=== PATIENT | female | born 2000 | race Caucasian/White ===

== ENCOUNTER 2022-11-20 21:36 | Emergency (ER) | payer SELFPAY ==
[~2022-11-20] VITALS: Ht 160 cm; Wt 50.0 kg
--- NOTE | 2022-11-20 22:16 | ED General ---
General Chief Complaint: General Problems/Pain Stated Complaint: FEVER - VOMITING Nursing Triage Note: Patient presented to the ER tonight with complaints of body aches, fever and decreased appetite x 2 days as well as nausea. Source of Information: Patient Exam Limitations: No Limitations History of Present Illness Date Seen by Provider: Nov 20, 2022 Time Seen by Provider: 22:16 Initial Comments This is a 22-year-old female who presented to ER with complaints of generalized body aches, fever, decreased appetite over the past 2 days with nausea and vomiting. Took an oral ondansetron yesterday with no relief. Last menstrual period was middle of October, she had her first Depo injection at that time. Allergies and Home Medications Allergies Coded Allergies: No Known Drug Allergies (Unverified , 11/20/22) Past Kombepv-Etmtdb-Lolofo Hx Immunizations Up To Date First/Initial COVID19 Vaccinat: moderna Second COVID19 Vaccination Bryan: modernayleen Physical Exam Vital Signs Vital Signs - First Documented 11/20/22 21:52 Temp 36.6 Pulse 97 Resp 18 B/P (MAP) 101/82 (88) Pulse Ox 99 O2 Delivery Room Air Capillary Refill : Less Than 3 Seconds Height, Weight, BMI Height: '" Weight: lbs. oz. kg; 19.00 BMI Method: Progress/Results/Core Measures Suspected Sepsis SIRS Temperature: Pulse: 97 Respiratory Rate: 18 Blood Pressure 101 /82 Mean: 88 Results/Orders Lab Results Laboratory Tests Test 11/20/22 22:12 Range/Units Urine Color YELLOW Urine Clarity CLEAR Urine pH 6.0 5-9 Urine Specific [place] >=1.030 1.016-1.022 Urine Protein NEGATIVE NEGATIVE Urine Glucose (UA) NEGATIVE NEGATIVE Urine Ketones 2+ H NEGATIVE Urine Nitrite NEGATIVE NEGATIVE Urine Bilirubin NEGATIVE NEGATIVE Urine Urobilinogen 1.0 < = 1.0 MG/DL Urine Leukocyte Esterase TRACE H NEGATIVE Urine RBC (Auto) NEGATIVE NEGATIVE Urine RBC RARE /HPF Urine WBC RARE /HPF Urine Squamous Epithelial Cells NONE /HPF Urine Renal Epithelial Cells NONE /HPF Urine Crystals NONE /LPF Urine Bacteria NEGATIVE /HPF Urine Casts NONE /LPF Urine Mucus NEGATIVE /LPF Urine Culture Indicated NO Influenza Type A (RT-PCR) Not Detected Not Detecte Influenza Type B (RT-PCR) Not Detected Not Detecte SARS-CoV-2 RNA (RT-PCR) Not Detected Not Detecte My Orders Orders - [facility] Ua Culture If Indicated (11/20/22 21:59) Urine Bedside (11/20/22 21:59) Covid 19 Inhouse Test (11/20/22 21:59) Influenza A And B By Pcr (11/20/22 21:59) Ondansetron Oral Dissolve Tab (Zofran (11/20/22 22:30) Cbc With Automated Diff (11/20/22 22:45) Comprehensive Metabolic Panel (11/20/22 22:45) Rx-Ondansetron Po (Rx-Zofran Po) (11/20/22 22:45) Medications Given in ED Current Medications Medications Dose Ordered Sig/Nu Route Start Time Stop Time Status Last Admin Dose Admin Ondansetron HCl 4 mg ONCE ONCE PO 11/20/22 22:30 11/20/22 22:31 DC 11/20/22 22:28 4 MG Vital Signs/I&O 11/20/22 21:52 Temp 36.6 Pulse 97 Resp 18 B/P (MAP) 101/82 (88) Pulse Ox 99 O2 Delivery Room Air Capillary Refill : Less Than 3 Seconds Blood Pressure Mean: 88 Departure Impression Primary Impression: Nausea & vomiting Disposition: 01 HOME, SELF-CARE Condition: Improved Departure-Patient Inst. Decision time for Depature: 22:51 Referrals: NO,LOCAL PHYSICIAN (PCP/Family) Primary Care Physician Patient Instructions: Nausea and Vomiting, Adult ED Add. Discharge Instructions: Plan: 1. Drink clear liquids and advance slowly as tolerated when nausea improved. 2. May take Zofran 4mg ODT tab every 6 hours as needed for nausea. 3. Follow up with your doctor for any persistent symptoms. 4. Return to ER for any new, concerning, or worsening symptoms. All discharge instructions reviewed with patient and/or family. Voiced understanding. [facility] Nov 20, 2022 22:16
[2022-11-20 22:20] LABS: BILIRUBIN,URINE NEGATIVE (NEGATIVE); CLARITY,URINE CLEAR; COLOR,URINE YELLOW; GLUCOSE, URINE (UA) NEGATIVE (NEGATIVE); KETONES,URINE 2+ (NEGATIVE); LEUKOCYTE ESTERASE ,URINE TRACE (NEGATIVE); NITRITE,URINE NEGATIVE (NEGATIVE); PROTEIN,URINE NEGATIVE (NEGATIVE)
[2022-11-20 22:29] LABS: BACTERIA,URINE NEGATIVE /HPF; RBC,URINE RARE /HPF; WBC,URINE RARE /HPF
[2022-11-20] MEDS ORDERED: ONDANSETRON 4 MG (ZOFRAN) ORAL DISSOLVE TAB PO ONE (22:30)
[2022-11-20] MEDS ORDERED: RX-ONDANSETRON 4 MG ODT (ZOFRAN) PPK #4 PO STA (22:45)
[2022-11-20 23:01] LABS: BASOPHILS % (AUTO) 0 % (0-10); EOSINOPHILS # (AUTO) 0.4 10^3/uL (0.0-0.3); EOSINOPHILS % (AUTO) 9 % (0-10); HEMATOCRIT 41 % (35-52); HEMOGLOBIN 14.5 g/dL (11.5-16.0); LYMPHOCYTES # (AUTO) 0.7 10^3/uL (1.0-4.0); LYMPHOCYTES % (AUTO) 15 % (12-44); MEAN CORPUSCULAR HEMOGLOBIN 31 pg (25-34); MEAN CORPUSCULAR HGB CONC 35 g/dL (32-36); MEAN CORPUSCULAR VOLUME 89 fL (80-99); MEAN PLATELET VOLUME 10.5 fL (9.0-12.2); MONOCYTES # (AUTO) 0.4 10^3/uL (0.0-1.0); MONOCYTES % (AUTO) 8 % (0-12); NEUTROPHILS # (AUTO) 2.9 10^3/uL (1.8-7.8); NEUTROPHILS % (AUTO) 67 % (42-75); PLATELET COUNT 200 10^3/uL (130-400); WHITE BLOOD COUNT 4.4 10^3/uL (4.3-11.0)
[2022-11-20 23:21] LABS: POTASSIUM 3.9 MMOL/L (3.6-5.0)
[2022-11-20 23:22] LABS: CALCIUM 8.6 MG/DL (8.5-10.1)
[2022-11-20 23:23] LABS: TOTAL PROTEIN 7.1 GM/DL (6.4-8.2)
[2022-11-20 23:25] LABS: BILIRUBIN,TOTAL 0.8 MG/DL (0.1-1.0)
[2022-11-20 23:27] LABS: CREATININE SERUM 0.73 MG/DL (0.60-1.30)
[2022-11-21 00:29] VITALS: BP 112/74
== END 2022-11-21 00:29 | disposition home or self-care (01) ==
LOC: ER 21:38
DX: R11.2 Nausea with vomiting, unspecified (principal); Z20.822 Contact with and (suspected) exposure to COVID-19
CPT/HCPCS: 36415; 80053; 81000; 84703; 85025; 87636